=== PATIENT | male | born 1950 | race Caucasian/White ===

== ENCOUNTER 2017-11-25 12:33 | Emergency (ER) | payer MEDICARE, MEDICAID ==
[2017-11-25 12:41] VITALS: BP 158/88
--- NOTE | 2017-11-25 13:56 | ER Document Report ---
ED General - General Chief Complaint: Back Pain Stated Complaint: BACK PAIN Time Seen by Provider: 11/25/17 13:49 Notes: 67 year male presents with low back pain left-sided burning down his left leg intermittent with movement since trying to lift a refrigerator 3 days ago. He did not fall. He also has elbow pain at the site of an elbow replacement/ hardware which is been draining slightly for 6 months and he has not gone back to [place]. He denies fevers or chills. He denies numbness tingling in his legs or saddle anesthesia. TRAVEL OUTSIDE OF THE [place] IN LAST 30 DAYS: No - Related Data Allergies/Adverse Reactions: No Known Allergies Allergy (Verified 01/11/16 15:25) Past Medical History - Social History Smoking Status: Former Smoker Family History: Reviewed & Not Pertinent - Past Medical History Cardiac Medical History: Denies: Hx Heart Attack, Hx Hypertension Pulmonary Medical History: Denies: Hx Asthma Neurological Medical History: Denies: Hx Cerebrovascular Accident, Hx Seizures GI Medical History: Reports: Hx Hiatal Hernia. Denies: Hx Hepatitis, Hx Ulcer Psychiatric Medical History: Reports: Hx Depression Infectious Medical History: Denies: Hx Hepatitis Past Surgical History: Reports: Hx Orthopedic Surgery - right elbow and right humerus hardware. Denies: Hx Open Heart Surgery, Hx Pacemaker - Immunizations Hx Pneumococcal Vaccination: 06/28/15 Review of Systems - Review of Systems Notes: REVIEW OF SYSTEMS GEN: Denies fever, chills, weight loss ENT: Denies sore throat, nasal discharge, ear pain EYES: Denies blurry vision, eye pain, discharge CV: Denies chest pain, palpitations, edema RESP: Denies cough, shortness of breath, wheezing GI: Denies abdominal pain, nausea, vomiting, diarrhea MSK: Right elbow pain chronic, left lower back pain SKIN: Denies rash, skin lesions. Drainage from right elbow. LYMPH: Denies swollen glands/lymph nodes NEURO: Denies headache, focal weakness or numbness, dizziness PSYCH: Denies depression, suicidal or homicidal ideation PHYSICAL EXAMINATION General: No acute distress, well-nourished Head: Atraumatic, normocephalic ENT: Mouth normal, oropharynx moist, no exudates or tonsillar enlargement Eyes: Conjunctiva normal, pupils equal, lids normal Neck: No JVD, supple, no guarding CVS: Normal rate, regular rhythm, no murmurs Resp: No resp distress, equal and normal breath sounds bilaterally GI: Nondistended, soft, no tenderness to palpation, no rebound or guarding Ext: Right elbow with postsurgical changes, chronic. Discolored area right over the olecranon with a pinpoint area of purulent drainage. No fluctuance. No increasing drainage on palpation. No tenderness. Back: No CVA or midline TTP. Left lower lumbar muscular tenderness. Skin: No rash, warm Lymphatic: No lymphadeopathy noted Neuro: Awake, alert. Face symmetric. GCS 15. Physical Exam - Vital signs Vitals: Temp Pulse Resp BP Pulse Ox 98.5 F 63 18 158/88 H 93 11/25/17 12:39 11/25/17 12:39 11/25/17 12:39 11/25/17 12:39 11/25/17 12:39 Course - Re-evaluation Re-evalutation: 11/25/17 13:54 Back strain after fall. No midline tenderness. No neurologic signs on exam despite radiation of pain. Known lumbar degenerative disc disease and is refusing surgery or specialist referral. We will prescribe Flexeril for a few days for this, no need for imaging today. In terms of the right elbow this is been a 8 month process of chronic drainage which may reflect chronic osteo-, however given its chronicity and his lack of vital sign abnormalities as well as the small amount of drainage on exam he can follow up with [facility] for this. Insert discharge - Vital Signs Vital signs: Temp Pulse Resp BP Pulse Ox 98.5 F 63 18 158/88 H 93 11/25/17 12:39 11/25/17 12:39 11/25/17 12:39 11/25/17 12:39 11/25/17 12:39 Discharge - Discharge Clinical Impression: Low back strain Condition: Good Disposition: HOME, SELF-CARE Instructions: Low Back Pain ([facility]) Additional Instructions: Is very important that you see your orthopedic surgeon about the elbow drainage. This may be a bone infection. Prescriptions: Cyclobenzaprine HCl [Flexeril 5 mg Tablet] 5 mg PO TID #15 tablet
== END 2017-11-25 15:33 | disposition home or self-care (01) ==
LOC: ER 12:33
DX: S39.012A Strain of muscle, fascia and tendon of lower back, initial encounter (principal); M25.521 Pain in right elbow; X50.0XXA Overexertion from strenuous movement or load, initial encounter; Z96.621 Presence of right artificial elbow joint; Z87.891 Personal history of nicotine dependence
CPT/HCPCS: 99283

== ENCOUNTER → 2017-12-11 | Outpatient (CLI) | payer MEDICARE, MEDICAID ==
--- NOTE | 2017-12-11 11:29 | RADIOLOGY REPORT (SQ) ---
EXAM DESCRIPTION: U/S ABDOMEN LIMITED W/O DOP COMPLETED DATE/TIME: 12/11/2017 10:46 am REASON FOR STUDY: CIRRHOSIS (ALCOHOLIC) OF LIVER W/O ASCITES (K70.30) K70.30 ALCOHOLIC CIRRHOSIS OF LIVER WITHOUT ASCITES COMPARISON: None. TECHNIQUE: Dynamic and static grayscale images acquired of the liver and recorded on PACS. Additiona l selected color Doppler and spectral images recorded. Selected velocities recorded. LIMITATIONS: Mildly limited resolution, likely related to body habitus and bowel interference. FINDINGS: LIVER: No gross mass. Less than 18 cm transverse dimension, normal. Limited assessment o f the parenchymal echogenicity. Possible fatty infiltration. LIVER VASCULATURE: Portal vein not seen. GALLBLADDER: No stones. Normal wall thickness. No pericholecystic fluid. ULTRASOUND-DETECTED ZAVALA'S SIGN: Negative. INTRAHEPATIC DUCTS AND COMMON DUCT: No dilatation suggested, however not well seen. ASCITES: None. OTHER: No other significant finding. IMPRESSION: Limited study. Liver looks normal size but otherwise is poorly assessed. No gross gall bladder disease. TECHNICAL DOCUMENTATION: JOB ID: [id number] [employer]- All Rights Reserved
== END ==
LOC: RAD 09:32
PROVIDERS: ATTEND Internal Medicine Gastroenterology
DX: K70.30 Alcoholic cirrhosis of liver without ascites (principal)
CPT/HCPCS: 76705

== ENCOUNTER → 2018-03-05 | Outpatient (CLI) | payer MEDICARE, MEDICAID ==
--- NOTE | 2018-03-05 11:43 | RADIOLOGY REPORT (SQ) ---
EXAM DESCRIPTION: LUMBAR SPINE COMPLETE COMPLETED DATE/TIME: 03/05/2018 11:06 am REASON FOR STUDY: LOW BACK PAIN E78.5 HYPERLIPIDEMIA, UNSPECIFIED M54.5 LOW BACK PAIN COMPARISON: None. NUMBER OF VIEWS: Five views including obliques. TECHNIQUE: AP, lateral, oblique, and sacral radiographic images acquired of the lumbar spine. LIMITATIONS: None. FINDINGS: MINERALIZATION: Normal. SEGMENTATION: Normal. No transitional anatomy. ALIGNMENT: Normal. VERTEBRAE: Maintained height. No fracture or worrisome bone lesion. DISCS: Multilevel disc disease. Most pronounced at L1-2 and L2-3 with associated prominent osteophyt es. POSTERIOR ELEMENTS: Pedicles and facets are intact. No pars defect or posterior arch defects. Facet arthropathy is present. HARDWARE: None in the spine. PARASPINAL SOFT TISSUES: Normal. PELVIS: Intact as visualized. No fractures or worrisome bone lesions. SI joints intact. OTHER: No other significant finding. IMPRESSION: SPONDYLOSIS WITHOUT BONE LESION OR FRACTURE. TECHNICAL DOCUMENTATION: JOB ID: [id number] [employer]- All Rights Reserved Reading location - IP/workstation name: [email or web address]
[2018-03-05 11:53] LABS: ALANINE AMINOTRANSFERASE 130 U/L (21-72); ALKALINE PHOSPHATASE 112 U/L (38-126); ANION GAP 12 (5-19); ASPARTATE AMINO TRANSFERASE 89 U/L (17-59); BILIRUBIN,DIRECT 0.2 mg/dL (0.0-0.4); BILIRUBIN,TOTAL 0.5 mg/dL (0.2-1.3); BLOOD UREA NITROGEN 19 mg/dL (7-20); CALCIUM 9.4 mg/dL (8.4-10.2); CARBON DIOXIDE 26 mmol/L (22-30); CHLORIDE 103 mmol/L (98-107); GLUCOSE 117 mg/dL (75-110); POTASSIUM 4.6 mmol/L (3.6-5.0); SODIUM 141.3 mmol/L (137-145); TOTAL PROTEIN 6.8 g/dL (6.3-8.2)
== END ==
LOC: OD 10:07
PROVIDERS: ATTEND Family Medicine
DX: M54.5 Low back pain (principal); E78.5 Hyperlipidemia, unspecified; M47.897 Other spondylosis, lumbosacral region
CPT/HCPCS: 36415; 72110; 80053

== ENCOUNTER → 2018-12-18 | Outpatient (CLI) | payer MEDICARE, MEDICAID ==
[2018-12-18 09:41] LABS: HEMATOCRIT 47.5 % (37.9-51.0); HEMOGLOBIN 16.4 g/dL (13.5-17.0); MEAN CORPUSCULAR HEMOGLOBIN 33.6 pg (27.0-33.4); MEAN CORPUSCULAR HGB CONC 34.5 g/dL (32.0-36.0); MEAN CORPUSCULAR VOLUME 98 fl (80-97); PLATELET COUNT 198 10^3/uL (150-450); RED BLOOD COUNT 4.87 10^6/uL (4.35-5.55); RED CELL DISTRIBUTION WIDTH 13.8 % (11.5-14.0); WHITE BLOOD COUNT 7.2 10^3/uL (4.0-10.5)
[2018-12-18 09:49] LABS: INTERNATIONAL RATION (INR) 0.92; PROTHROMBIN TIME 12.8 SEC (11.4-15.4)
[2018-12-18 10:15] LABS: ALANINE AMINOTRANSFERASE 94 U/L (21-72); ALBUMIN 4.1 g/dL (3.5-5.0); ALKALINE PHOSPHATASE 126 U/L (38-126); ANION GAP 8 (5-19); ASPARTATE AMINO TRANSFERASE 84 U/L (17-59); BILIRUBIN,DIRECT 0.3 mg/dL (0.0-0.4); BILIRUBIN,TOTAL 0.7 mg/dL (0.2-1.3); BLOOD UREA NITROGEN 12 mg/dL (7-20); CALCIUM 9.2 mg/dL (8.4-10.2); CARBON DIOXIDE 27 mmol/L (22-30); CHLORIDE 104 mmol/L (98-107); GLUCOSE 151 mg/dL (75-110); POTASSIUM 4.9 mmol/L (3.6-5.0); SODIUM 139.3 mmol/L (137-145); TOTAL PROTEIN 6.9 g/dL (6.3-8.2)
[2018-12-20 15:36] LABS: HEPATITIS C QUANTITATION HCV Not Detected IU/mL (.)
== END ==
LOC: LAB 09:11
PROVIDERS: ATTEND Physician Assistant Surgical
DX: K70.30 Alcoholic cirrhosis of liver without ascites (principal); I85.00 Esophageal varices without bleeding; B19.20 Unspecified viral hepatitis C without hepatic coma
CPT/HCPCS: 36415; 80048; 80076; 85027; 85610; 87522

== ENCOUNTER → 2018-12-22 | Outpatient (CLI) | payer MEDICARE, MEDICAID ==
--- NOTE | 2018-12-22 15:56 | RADIOLOGY REPORT (SQ) ---
EXAM DESCRIPTION: CT ABD/PELVIS WITH IV ORAL COMPLETED DATE/TIME: 12/22/2018 2:29 pm REASON FOR STUDY: K70.30 ALCOHOLIC CIRRHOSIS OF LIVER WITHOUT ASCITES K70.30 ALCOHOLIC CIRRHOSIS OF LIVER WITHOUT ASCITES I85.00 ESOPHAGEAL VARICES WITHOUT BLEEDING K76.6 PORTAL HYPERTENSION COMPARISON: None. TECHNIQUE: CT scan of the abdomen and pelvis performed with intravenous and oral contrast using hoa gay scanning technique with dynamic intravenous contrast injection. Images reviewed with lung, soft t issue, and bone windows. Reconstructed coronal and sagittal MPR images reviewed. Delayed images for e valuation of the urinary system also acquired. All images stored on PACS. All CT scanners at this facility use dose modulation, iterative reconstruction, and/or weight based d osing when appropriate to reduce radiation dose to as low as reasonably achievable (ALARA). [facility]: Dose Right [facility]: CareDose [facility]: Dose Right [facility]: Teradose 4D [facility]: Guestmob CONTRAST TYPE AND DOSE: contrast/concentration: Isovue 350.00 mg/ml; Total Contrast Delivered: 100.0 ml; Total Saline Delivered: 72.0 ml RENAL FUNCTION: Not available. RADIATION DOSE: CT Rad equipment meets quality standard of care and radiation dose reduction techniq ues were employed. CTDIvol: 25.9 - 29.2 mGy. DLP: 3259 mGy-cm. . LIMITATIONS: None. FINDINGS: LOWER CHEST: Subcentimeter calcified granulomas. Large hiatal hernia. LIVER: Small size with sub capsular nodularity. No mass identified. Hypertrophy caudate lobe. SPLEEN: Normal size. No focal lesions. PANCREAS: No masses. No significant calcifications. No adjacent inflammation or peripancreatic fluid collections. Pancreatic duct not dilated. GALLBLADDER: Gallstones. No inflammatory changes to suggest cholecystitis. ADRENAL GLANDS: No significant masses or asymmetry. RIGHT KIDNEY AND URETER: No solid masses. No significant calcifications. No hydronephrosis or hyd roureter. LEFT KIDNEY AND URETER: No solid masses. No significant calcifications. No hydronephrosis or hydr oureter. AORTA AND VESSELS: No aneurysm. Recannulized umbilical vein. Esophageal varices. RETROPERITONEUM: No retroperitoneal adenopathy, hemorrhage or masses. BOWEL AND PERITONEAL CAVITY: Diffuse diverticulosis. No obstruction. No visualized masses. No free f luid. No inflammatory changes or thickening of bowel wall. APPENDIX: Normal. PELVIS: No significant masses. Normal bladder. No free fluid. ABDOMINAL WALL: No masses. No hernias. BONES: Nothing acute. OTHER: No other significant finding. IMPRESSION: 1. Cirrhosis. Esophageal varices. No ascites. 2. Cholelithiasis. 3. Diffuse diverticulosis. 4. Large hiatal hernia. TECHNICAL DOCUMENTATION: JOB ID: [id number] Quality ID # [id number]: Final reports with documentation of one or more dose reduction techniques (e.g., Au tomated exposure control, adjustment of the mA and/or kV according to patient size, use of iterative reconstruction technique) 2010 [employer]- All Rights Reserved Reading location - IP/workstation name: [email or web address]
== END ==
LOC: RAD 13:34
PROVIDERS: ATTEND Internal Medicine Gastroenterology
DX: K70.30 Alcoholic cirrhosis of liver without ascites (principal); I85.00 Esophageal varices without bleeding; K76.6 Portal hypertension; K57.90 Diverticulosis of intestine, part unspecified, without perforation or abscess without bleeding; K44.9 Diaphragmatic hernia without obstruction or gangrene
CPT/HCPCS: 74177

== ENCOUNTER 2020-04-14 08:08 | Day surgery (SDC) | payer MEDICARE, MEDICAID ==
[~2020-04-14 08:08] MED LIST: CHONDR SU A NA/HYALUR INTRAOC KIT (SURGICARE) ONE; EPINEPHRINE INJ/PF 1 MG/1 ML AMPULE ONE; KETOROLAC TROMETHAMINE 0.45% 4 DROP/0.4 ML DROPERETTE OS PRN; LIDOCAINE 1%/PHENYLEPHRINE 1.5% 1 ML VIAL ONE
[2020-04-14] MEDS ORDERED: MIDAZOLAM 2 MG/2 ML INJ ONE ×2 (08:25→09:16)
[2020-04-14] MEDS ORDERED: FENTANYL CITRATE INJ/PF 100 MCG/2 ML AMPUL ONE ×2 (08:25→09:17)
[2020-04-14] MEDS: CYCLOPENTOLATE 0.2%/PHENYLEPHRINE 1% OPH SOLN 2 ML OS PRN ×3 (09:10→09:30)
[2020-04-14] MEDS: BESIFLOXACIN HCL 0.6% OPH SUSP 5 ML BOTTLE OS PRN ×4 (09:10→09:55)
[2020-04-14] MEDS: TETRACAINE HCL 0.5% OPH SOLN 4 ML OS PRN ×3 (09:10→09:36)
[2020-04-14] MEDS: TROPICAMIDE 1% OPH SOLN 15 ML OS PRN ×3 (09:10→09:30)
[2020-04-14] MEDS: DORZOLAMIDE HCL 2%/TIMOLOL MALEAT 0.5% OPH SOLN 10 ML OS PRN ×2 (09:46→09:55)
--- NOTE | 2020-04-14 13:33 | Operative Report ---
Operative Report-[facility] Operative Report: DATE OF SURGERY: 04/14/20 PREOPERATIVE DIAGNOSIS: Cataracts, left eye POSTOPERATIVE DIAGNOSIS: Cataract, left eye OPERATION: Cataract extraction with insertion of an IOL of the left eye. Intraocular Lens Model: [19.5 sn60wf] pt underwent surgery for difficulty reading SURGEON: Carl Silvestre MD ANESTHESIA: Topical PROCEDURE: After obtaining appropriate consent, the patient's left eye was prepped and draped in a sterile fashion as well as the surgeon in the sterile manner and cataract surgery was started. First a paracentesis blade was used to make a side-port incision. Viscoelastic was used to inflate the anterior chamber. Next a 2.4 mm incision was made with a 2.4 mm blade, clear corneal temporarily. A continuous capsulorrhexis was made using a cystotome and Utrata forceps. Following this hydrodissection was carried out to make the lens fully loose and mobile and it was rotated 90 degrees. Following this, a divide and conquer technique was used to phacoemulsify the lens. The remaining cortex was removed with an irrigation/aspiration. Provisc was instilled into the capsular bag to inflate the bag.The intraocular lens was placed. The remaining viscoelastic material was removed with irrigation/aspiration. Following this, the incision was found to be watertight. Besivance and Cosopt was instilled into the eye and a protective shield was placed over the eye. The patient was returned to the postoperative recovery in a stable condition.
== END 2020-04-14 10:35 | disposition home or self-care (01) ==
LOC: SC 08:08
PROVIDERS: ATTEND Internal Medicine
DX: H25.812 Combined forms of age-related cataract, left eye (principal); H26.491 Other secondary cataract, right eye; Z96.1 Presence of intraocular lens; I10 Essential (primary) hypertension; R06.02 Shortness of breath; K74.60 Unspecified cirrhosis of liver; Z87.891 Personal history of nicotine dependence; Z79.899 Other long term (current) drug therapy
CPT/HCPCS: 66984; J2250; J3490 ×2; A9270; J0171; J3010; V2632